=== PATIENT | male | born 1970 | race Two or more races ===

== ENCOUNTER 2023-10-14 07:36 | Outpatient (CLI) | payer OTHER ==
[2023-10-14 09:00] LABS: ALBUMIN 3.6 gm/dL (3.4-5.0); BILIRUBIN TOTAL 0.45 mg/dL (0.3-1.2); CALCIUM 8.6 mg/dL (8.5-10.1); CHOL HDL RATIO 2.9 (0-5.0); GFR 78.47; GLOBULINA 3.4 G/DL (2.4-3.5); POTASSIUM 3.92 mEq/L (3.5-5.1); PROSTATIC SPECIFIC ANTIGEN 0.786 NG/ML (0.010-4.00)
== END 2023-10-14 07:37 | disposition home or self-care (01) ==
LOC: LAB 07:36
DX: E11.65 Type 2 diabetes mellitus with hyperglycemia (principal); Z12.11 Encounter for screening for malignant neoplasm of colon; E78.2 Mixed hyperlipidemia; K76.0 Fatty (change of) liver, not elsewhere classified

== ENCOUNTER 2023-12-21 08:12 | Outpatient (CLI) | payer OTHER ==
[2023-12-21 09:36] LABS: PH,URINE 6.5 (5.0-8.0); URINE APPEARANCE Clear; URINE BILIRRUBIN Negative (NEGATIVE); URINE BLOOD Negative; URINE COLOR Yellow; URINE GLUCOSE Negative (NEGATIVE); URINE KETONE Negative (NEGATIVE); URINE LEUKOCYTE Negative; URINE NITRATE Negative; URINE PROTEIN Negative (NEGATIVE); URINE UROBILINOGEN 0.2 E.U./dl
[2023-12-21 09:40] LABS: URINE RBC 14.8 uL (0.0-20.8)
[2023-12-21 09:42] LABS: URINE BACTERIA 2.5 uL (0.0-1933); URINE EPITHELIAL CELLS 0.3 uL (0.0-38.8); URINE WBC 0.4 uL (0.0-23.2)
[2023-12-21 09:43] LABS: HEMOGLOBIN 13.9 g/dL (13-16.00); MEAN CELL VOLUME 90.3 fL (80.0-100.00); MEAN CORPUSCULAR HGB CONC 33.2 g/dl (32.0-36.0); PLATELET COUNT 244 K/uL (150-450); RED BLOOD COUNT 4.65 M/uL (4.00-6.00); RED CELL DISTRIBUTION WIDTH 13.3 % (11.5-14.5)
[2023-12-21 10:13] LABS: BILIRUBIN TOTAL 0.72 mg/dL (0.3-1.2); CALCIUM 9.2 mg/dL (8.5-10.1); CREATININE SERUM 0.86 mg/dL (0.70-1.30); GFR 93.38; GLOBULINA 3.4 G/DL (2.4-3.5); POTASSIUM 4.01 mEq/L (3.5-5.1); TOTAL PROTEIN 7.4 gm/dL (6.4-8.2)
== END 2023-12-21 08:21 | disposition home or self-care (01) ==
LOC: LAB 08:12
DX: F52.9 Unspecified sexual dysfunction not due to a substance or known physiological condition (principal); R31.0 Gross hematuria

== ENCOUNTER 2023-12-24 11:28 | Outpatient (CLI) | payer OTHER | END 2023-12-24 11:35 | disposition home or self-care (01) | LOC: SONOGRAMA 11:28 | DX: R31.29 Other microscopic hematuria (principal) ==

== ENCOUNTER → 2024-05-04 07:11 | Outpatient (CLI) | payer OTHER ==
[2024-05-04 08:22] LABS: PH,URINE 6.5 (5.0-8.0); URINE APPEARANCE Clear; URINE BILIRRUBIN Negative (NEGATIVE); URINE BLOOD Negative; URINE COLOR Yellow; URINE GLUCOSE Negative (NEGATIVE); URINE KETONE Negative (NEGATIVE); URINE LEUKOCYTE Negative; URINE NITRATE Negative; URINE PROTEIN Negative (NEGATIVE); URINE UROBILINOGEN 0.2 E.U./dl
[2024-05-04 08:23] LABS: URINE BACTERIA 4.8 uL (0.0-1933); URINE RBC 14.5 uL (0.0-20.8)
[2024-05-04 08:24] LABS: HEMATOCRIT 42.1 % (39.0-48.0); HEMOGLOBIN 14.1 g/dL (13-16.00); MEAN CELL VOLUME 90.3 fL (80.0-100.00); MEAN CORPUSCULAR HEMOGLOBIN 30.2 pg (27.00-32.0); MEAN CORPUSCULAR HGB CONC 33.4 g/dl (32.0-36.0); PLATELET COUNT 207 K/uL (150-450); RED BLOOD COUNT 4.66 M/uL (4.00-6.00); RED CELL DISTRIBUTION WIDTH 13.5 % (11.5-14.5)
[2024-05-04 09:33] LABS: URINE WBC 1.2 uL (0.0-23.2)
[2024-05-04 10:05] LABS: ALBUMIN 3.7 gm/dL (3.4-5.0); BILIRUBIN TOTAL 0.45 mg/dL (0.3-1.2); CHOL HDL RATIO 2.9 (0-5.0); CREATININE SERUM 0.97 mg/dL (0.70-1.30); GFR 80.96; GLOBULINA 3.4 G/DL (2.4-3.5); POTASSIUM 4.03 mEq/L (3.5-5.1); PROSTATIC SPECIFIC ANTIGEN 0.914 NG/ML (0.010-4.00); TOTAL PROTEIN 7.1 gm/dL (6.4-8.2); TSH 1.93 uIU/mL (0.358-3.74)
== END | disposition home or self-care (01) ==
LOC: LAB 07:11
DX: E11.9 Type 2 diabetes mellitus without complications (principal); N39.0 Urinary tract infection, site not specified; D64.9 Anemia, unspecified; E78.5 Hyperlipidemia, unspecified; E03.9 Hypothyroidism, unspecified; E55.9 Vitamin D deficiency, unspecified; R97.20 Elevated prostate specific antigen [PSA]

== ENCOUNTER 2024-05-08 07:28 | Outpatient (CLI) | payer OTHER | END 2024-05-08 07:30 | disposition home or self-care (01) | LOC: SONOGRAMA 07:28 | DX: K76.0 Fatty (change of) liver, not elsewhere classified (principal) ==

== ENCOUNTER 2024-08-01 10:01 | Outpatient (CLI) | payer OTHER ==
[2024-08-01 16:43] LABS: CREATININE SERUM 1.02 mg/dL (0.70-1.30); GFR 76.4
[2024-08-01 16:44] LABS: ALBUMIN 3.9 gm/dL (3.4-5.0); BILIRUBIN TOTAL 0.72 mg/dL (0.3-1.2); CALCIUM 8.8 mg/dL (8.5-10.1); CHOL HDL RATIO 2.6 (0-5.0); GLOBULINA 3.6 G/DL (2.4-3.5); POTASSIUM 3.87 mEq/L (3.5-5.1); TOTAL PROTEIN 7.5 gm/dL (6.4-8.2)
== END 2024-08-01 11:07 | disposition home or self-care (01) ==
LOC: LAB 10:01
PROVIDERS: ATTEND General Practice
DX: E11.65 Type 2 diabetes mellitus with hyperglycemia (principal); N40.0 Benign prostatic hyperplasia without lower urinary tract symptoms; E78.2 Mixed hyperlipidemia

== ENCOUNTER 2025-01-16 08:42 | Outpatient (CLI) | payer OTHER ==
[2025-01-16 10:02] LABS: BASO % 0.5 % (0.1-1.2); EOS # 0.18 (0.04-0.54); EOS % 1.6 % (0.7-7.0); LYMPH # 1.65 (1.18-3.74); LYMPH % 15.1 % (19.3-53.1); MEAN PLATELET VOLUME 9.20 fl (9.4-12.4); MONO # 0.82 (0.24-0.82); MONO % 7.5 % (4.7-12.5); NEUT # 8.19 (1.56-6.13); NEUT % 74.8 % (34.0-71.1); RED CELL DISTRIBUTION WIDTH 12.6 % (11.6-14.4); URINE APPEARANCE Clear; URINE BILIRRUBIN Negative (NEGATIVE); URINE BLOOD Small; URINE COLOR Yellow; URINE GLUCOSE Negative (NEGATIVE); URINE KETONE Negative (NEGATIVE); URINE LEUKOCYTE Negative; URINE NITRATE Negative; URINE PROTEIN Negative (NEGATIVE); URINE UROBILINOGEN 0.2 E.U./dl
[2025-01-16 10:06] LABS: URINE BACTERIA 10.7 uL (0.0-1933); URINE RBC 45.9 uL (0.0-20.8)
[2025-01-16 10:23] LABS: COVID-19 AG NEGATIVE (NEGATIVE); URINE CAST 0.00 uL (0.0-1.40); URINE EPITHELIAL CELLS 0.1 uL (0.0-38.8); URINE WBC 0.6 uL (0.0-23.2)
[2025-01-16 10:56] LABS: ALT/SGPT 39.0 U/L (12-78); AST/SGOT 24.0 U/L (15-37); BILIRUBIN TOTAL 0.79 mg/dL (0.3-1.2); BUN CREA RATIO 17.0 (7.0-25.0); CHOL HDL RATIO 2.5 (0-5.0); CREATININE SERUM 0.93 mg/dL (0.70-1.30); GFR 84.99; GLOBULINA 3.7 G/DL (2.4-3.5); GLUCOSE FASTING 102.0 mg/dL (65-100); HDL 66.0 mg/dl (40-60); LDL 84.0 mg/dl (0-130); OSMOLALITY SERUM 281.0 MOSM/KG (275-295); PROSTATIC SPECIFIC ANTIGEN 1.43 NG/ML (0.010-4.00); T4 TOTAL 7.71 UG/DL (4.5-12.1); TSH 1.32 uIU/mL (0.358-3.74); VLDL 12.0 (0-39)
[2025-01-16 13:04] LABS: ob NEGATIVE (NEGATIVE)
== END 2025-01-16 08:44 | disposition home or self-care (01) ==
LOC: LAB 08:42
PROVIDERS: ATTEND Internal Medicine Gastroenterology
DX: K92.1 Melena (principal); R10.84 Generalized abdominal pain; N39.0 Urinary tract infection, site not specified; E78.5 Hyperlipidemia, unspecified; R19.4 Change in bowel habit; N40.0 Benign prostatic hyperplasia without lower urinary tract symptoms; E03.8 Other specified hypothyroidism; R50.9 Fever, unspecified; J15.9 Unspecified bacterial pneumonia; J11.00 Influenza due to unidentified influenza virus with unspecified type of pneumonia

== ENCOUNTER 2025-01-18 13:41 | Outpatient (CLI) | payer OTHER | END 2025-01-18 13:45 | disposition home or self-care (01) | LOC: LAB 13:41 | PROVIDERS: ATTEND General Practice | DX: J11.00 Influenza due to unidentified influenza virus with unspecified type of pneumonia (principal) ==

== ENCOUNTER 2025-01-18 14:00 | Outpatient (CLI) | payer OTHER | END 2025-01-18 14:02 | disposition home or self-care (01) | LOC: RAD 14:00 | DX: J06.9 Acute upper respiratory infection, unspecified (principal) ==

== ENCOUNTER 2025-03-26 22:33 | Emergency (ER) | payer OTHER ==
[~2025-03-26] VITALS: Ht 170.2 cm; Wt 65.8 kg
== END 2025-03-27 02:22 | disposition home or self-care (01) ==
LOC: ER 22:34
DX: R51.9 Headache, unspecified (principal); Z91.041 Radiographic dye allergy status